=== PATIENT | male | born 1965 | race Caucasian/White ===

== ENCOUNTER 2019-04-20 08:16 | Day surgery (SDC) | payer MEDICAID ==
[2019-04-20] MEDS ORDERED: Lactated Ringers 1,000 ML IV SCH (09:30)
[2019-04-20] MEDS ORDERED: Midazolam 1 MG/ML 2 ML SDV ONE (09:33)
[2019-04-20] MEDS ORDERED: fentaNYL 100 MCG/2 ML SDV ONE (09:33)
[2019-04-20] MEDS ORDERED: Propofol 200 MG/20 ML SDV ONE ×2 (09:33→10:30)
[2019-04-20 11:44] VITALS: BP 138/77; PULSE 77
--- NOTE | 2019-04-20 15:06 | OR ---
DATE OF PROCEDURE: 04/20/2019 SURGEON: Nathaniel Hickey MD PREOPERATIVE DIAGNOSIS: Colon cancer screening. POSTOPERATIVE DIAGNOSIS: Unremarkable colonoscopy. PROCEDURE PERFORMED: Colonoscopy to the cecum. ANESTHESIA: IV anesthesia with monitored anesthesia care. INDICATION: This 53-year-old white male is referred for a colonoscopy for colon cancer screening. He has never had a colonoscopic exam. I counseled him for the procedure, including risks and alternatives, and he gave his informed consent to proceed. DESCRIPTION OF PROCEDURE: The patient was placed in the left lateral decubitus position. IV anesthesia was administered by the anesthesia service. Time-out was held. A rectal exam was performed, which was unremarkable. The flexible video Olympus colonoscope was introduced through his anus, up his rectum and out his colon, all the way to the cecum. Once the cecum was reached, the scope was slowly withdrawn examining the mucosa throughout. No mucosal abnormalities were noted. The scope was retroflexed in the rectum with the distal rectum appearing unremarkable. The scope was straightened and removed. He tolerated the procedure well. Nathaniel Hickey MD /[id number]
== END 2019-04-20 11:35 | disposition home or self-care (01) ==
LOC: JP.SDS 08:16
PROVIDERS: ATTEND Surgery
DX: Z12.11 Encounter for screening for malignant neoplasm of colon (principal); E78.5 Hyperlipidemia, unspecified; E10.9 Type 1 diabetes mellitus without complications; F17.210 Nicotine dependence, cigarettes, uncomplicated
CPT/HCPCS: 45378; J2250; J2704; J3010; J7120

== ENCOUNTER 2019-10-16 18:48 | Emergency (ER) | payer MEDICAID ==
[2019-10-16 19:10] VITALS: BP 101/66; PULSE 119
[2019-10-16] MEDS ORDERED: Bupivacaine 0.5%/EPINEPHrine 1:200,000 1.8 ML Cartridge INJECT ONE (19:16)
[2019-10-16] MEDS ORDERED: Bupivacaine 0.5%/EPINEPHrine 1:200,000 1.8 ML Cartridge ONE (19:18)
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
== END 2019-10-16 19:34 | disposition home or self-care (01) ==
LOC: JP.ED 18:48
DX: K04.7 Periapical abscess without sinus (principal); K02.9 Dental caries, unspecified; E11.21 Type 2 diabetes mellitus with diabetic nephropathy; Z79.4 Long term (current) use of insulin; Z79.82 Long term (current) use of aspirin; Z79.899 Other long term (current) drug therapy
CPT/HCPCS: 64400; 99282; J3490

== ENCOUNTER 2020-08-10 11:54 | Emergency (ER) | payer MEDICAID ==
[2020-08-10] MEDS ORDERED: Bacitracin Oint 1 GM U/D Packet TOP ONE (12:38)
[2020-08-10] MEDS ORDERED: Diphtheria,Pertussis(Acell),Tetanus Vaccine 0.5 ML Syringe IM ONE (12:38)
[2020-08-10 12:39] VITALS: BP 128/77; PULSE 94
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
== END 2020-08-10 13:06 | disposition home or self-care (01) ==
LOC: JP.ED 11:54
DX: S61.412A Laceration without foreign body of left hand, initial encounter (principal); E11.21 Type 2 diabetes mellitus with diabetic nephropathy; Z23 Encounter for immunization; Z79.4 Long term (current) use of insulin; Z79.82 Long term (current) use of aspirin; Z79.899 Other long term (current) drug therapy; W26.0XXA Contact with knife, initial encounter
CPT/HCPCS: 90471; 90715; 99282

== ENCOUNTER 2020-12-01 05:14 | Day surgery (SDC) | payer MEDICAID ==
[2020-12-01 06:11] LABS: CORONAVIRUS COVID-19 NAA NEGATIVE (NEGATIVE)
[2020-12-01] MEDS ORDERED: Dextrose 5%-Lactated Ringers 1,000 ML IV SCH (07:00)
[2020-12-01] MEDS ORDERED: fentaNYL 100 MCG/2 ML SDV ONE (07:11)
[2020-12-01] MEDS ORDERED: Propofol 200 MG/20 ML SDV ONE (07:11)
[2020-12-01] MEDS ORDERED: Midazolam 1 MG/ML 2 ML SDV ONE (07:11)
[2020-12-01 09:53] VITALS: BP 128/78; PULSE 72
--- NOTE | 2020-12-10 10:18 | OR ---
DATE OF PROCEDURE: 12/01/2020 SURGEON: Sushil Ventura MD PREOPERATIVE DIAGNOSIS: Worsening gastroesophageal reflux disease. POSTOPERATIVE DIAGNOSES: Worsening gastroesophageal reflux disease associated with large gastric bezoar and mild diffuse gastritis. OPERATIVE PROCEDURE: Esophagogastroduodenoscopy with antral biopsies for CLOtest. ANESTHESIA: IV sedation. INDICATIONS FOR PROCEDURE: This is a 55-year-old male presenting with longstanding type 1 diabetes with worsening gastroesophageal reflux disease. The patient presently is on omeprazole 20 mg a day. Plan is to proceed with upper GI endoscopy with biopsies as indicated. Potential risks including bleeding and perforation were discussed, and the patient wishes to proceed. DETAILS OF PROCEDURE: The patient was taken to the operating room and placed in a left lateral decubitus position. IV sedation was administered, after which the upper GI endoscope was passed orally through the length of the esophagus into the stomach with retroflexion view of the fundus and thereafter through the pyloric channel into the proximal duodenum. Findings included normal hypopharynx, larynx, upper esophageal sphincter, and distal esophagus. There was no significant hiatal hernia. Overall, there was no significant gross inflammation within the distal esophagus or any upward migration of the columnar mucosa above the upper gastric folds. The striking finding was that of a very large gastric bezoar, which essentially filled the entire gastric volume. This was associated with mild diffuse redness likely related to contact irritation with associated bezoar. The pyloric channel was widely open, i.e. there was no mechanical obstruction and visualized portion of the duodenum was unremarkable. At this point, biopsies were obtained from the antrum and sent for CLOtest for H. pylori. Minimal bleeding from the biopsy site was seen, and the procedure then concluded. At this point, it would appear that the main problem has been with the gastroparesis. We will move the patient on the present omeprazole dose and then start Zithromax 250 mg 1/2 tablet daily. We will see him back in 3 weeks for recheck. Sushil Ventura MD /[id number]
== END 2020-12-01 08:50 | disposition home or self-care (01) ==
LOC: JP.SDS 05:14
PROVIDERS: ATTEND Surgery
DX: K21.9 Gastro-esophageal reflux disease without esophagitis (principal); K29.70 Gastritis, unspecified, without bleeding; E78.5 Hyperlipidemia, unspecified; E11.9 Type 2 diabetes mellitus without complications; Z01.812 Encounter for preprocedural laboratory examination; Z20.822 Contact with and (suspected) exposure to COVID-19
CPT/HCPCS: 0241U; 43239; 87081; J2250; J2704; J3010; J7121

== ENCOUNTER 2021-10-03 09:47 | Emergency (ER) | payer MEDICAID ==
[2021-10-03 09:58] VITALS: BP 132/73; PULSE 92
[2021-10-03] MEDS ORDERED: Proparacaine 0.5% Ophth Soln 15 ML Bottle EYERT ONE (10:07)
== END 2021-10-03 10:34 | disposition home or self-care (01) ==
LOC: JP.ED 09:47
DX: S05.01XA Injury of conjunctiva and corneal abrasion without foreign body, right eye, initial encounter (principal); K21.9 Gastro-esophageal reflux disease without esophagitis; E11.21 Type 2 diabetes mellitus with diabetic nephropathy; Z79.82 Long term (current) use of aspirin; Z79.4 Long term (current) use of insulin; Z79.899 Other long term (current) drug therapy; Z72.0 Tobacco use; W22.09XA Striking against other stationary object, initial encounter
CPT/HCPCS: 99281; 99283; A9270-GY